=== PATIENT | male | born 1965 | race Caucasian/White ===

== ENCOUNTER 2022-01-02 15:15 | Outpatient (RCR) | payer BC, SELFPAY | END 2022-01-02 15:52 | disposition home or self-care (01) | PROVIDERS: PCP Physician Assistant Medical; Visit Provider Physician Assistant | DX: M54.2 Cervicalgia (principal) | CPT/HCPCS: 97110; 97112; 97140 ==

== ENCOUNTER 2022-06-11 14:46 | Outpatient (CLI) | payer BC, SELFPAY ==
[2022-06-11 21:39] LABS: Albumin* 5.1 g/dL (3.3-5.0); Chloride* 98 mmol/L (96-114); Sodium* 138 mmol/L (135-149)
[2022-06-11 21:40] LABS: Potassium* 4.4 mmol/L (3.6-5.1)
[2022-06-11 21:42] LABS: Alkaline Phosphatase* 92 U/L (40-150); Aspartate Amino Transferase* 45 U/L (12-35); Bilirubin Total* 0.5 mg/dL (0.1-1.5); Blood Urea Nitrogen* 12 mg/dL (7-30); Carbon Dioxide* 29 mmol/L (20-32); Creatinine* 0.8 mg/dL (0.5-1.5); Estimated Glomerular Filt Rate 103 ml/min
[2022-06-11 21:43] LABS: Alanine Aminotransferase* 49 U/L (4-50); Calcium* 9.9 mg/dL (8.4-10.6); Glucose* 170 mg/dL (60-115)
[2022-06-11 22:10] LABS: PSA Screen* 1.69 ng/mL (0.10-4.00)
[2022-06-11 23:21] LABS: Free T4 Free Thyroxine* 0.93 ng/dL (0.70-1.85)
== END 2022-06-11 14:47 | disposition home or self-care (01) ==
PROVIDERS: PCP Physician Assistant Medical; Visit Provider Physician Assistant Medical
DX: Z00.00 Encounter for general adult medical examination without abnormal findings (principal); E03.8 Other specified hypothyroidism; I10 Essential (primary) hypertension; R79.89 Other specified abnormal findings of blood chemistry
CPT/HCPCS: 80053; 84153; 84439; 84443

== ENCOUNTER 2022-09-06 09:55 | Outpatient (CLI) | payer BC, SELFPAY | END 2022-09-06 09:56 | disposition home or self-care (01) | LOC: NFLDREF 09-07 07:34 | PROVIDERS: PCP Physician Assistant Medical; Referring Provider Physician Assistant Medical; Visit Provider Physician Assistant Medical | DX: E03.8 Other specified hypothyroidism (principal); I10 Essential (primary) hypertension; R79.89 Other specified abnormal findings of blood chemistry | CPT/HCPCS: 80048; 80061; 84403; 84443 ==

== ENCOUNTER 2022-11-14 12:22 | Outpatient (CLI) | payer BC, SELFPAY ==
[2022-11-14] MEDS: PERFLUTREN LIPID MICROSPHERES 2 ML VIAL IV (13:10)
[2022-11-14 13:45] VITALS: BP 162/96; PULSE 89
--- NOTE | 2022-11-14 15:28 | W.PM.STED ---
Stress Test Note Date Date of test: 11/14/22 Providers Primary care provider: Esha Rogers Stress test physician: Jorge Banegas Stress Test Note Stress test ordered: Stress Echo Indication for test: Hypertension, shortness of breath, chest pain Stress test medicine: Definity Results discussion: Patient is a very nice gentleman who presents for the above test after discussion the risks benefits and side effects he would like to proceed cardiac stress test medical history form is reviewed. Pretest EKG shows normal sinus rhythm, the blood pressure 183/101. There is no acute ST wave changes, and his rhythm is sinus. Patient is exercised for a total time of 7 minutes 34 seconds achieved a metabolic equivalent of 9.1 Mets with a maximum heart rate of 150, this is under 7% of the target. Maximum blood pressure was 240 on 100. During this test he had some fatigue and some mild shortness of breath, but no chest pain review of the tracings post exercise so no specific ST wave changes suggestive ischemia, there is no dysrhythmias. Impression: Negative electrographic portion of stress echo, subjectively negative. Did have a positive shortness of breath, and conditioning was felt to be moderate Follow up suggested: Await echo images clinical correlation with these will be needed, patient left this testing facility in excellent condition. Follow-up will be with ordering provider.
== END 2022-11-14 12:23 | disposition home or self-care (01) ==
LOC: STRESS 12:23
PROVIDERS: PCP Physician Assistant Medical; Visit Provider Family Medicine
DX: I10 Essential (primary) hypertension (principal); R06.02 Shortness of breath; R07.89 Other chest pain
CPT/HCPCS: 93016; 93325; 93351; Q9957

== ENCOUNTER 2023-01-07 14:49 | Outpatient (CLI) | payer BC, SELFPAY | END 2023-01-07 14:50 | disposition home or self-care (01) | LOC: FRMREF 14:50 | PROVIDERS: PCP Physician Assistant Medical; Visit Provider Physician Assistant Medical | DX: E03.9 Hypothyroidism, unspecified (principal); I10 Essential (primary) hypertension; R79.89 Other specified abnormal findings of blood chemistry | CPT/HCPCS: 84439; 84443 ==

== ENCOUNTER 2023-07-17 14:20 | Outpatient (CLI) | payer BC, SELFPAY | END 2023-07-17 14:21 | disposition home or self-care (01) | LOC: NFLDREF 07-18 07:24 | PROVIDERS: PCP Physician Assistant Medical; Referring Provider Physician Assistant Medical; Visit Provider Physician Assistant Medical | DX: E03.8 Other specified hypothyroidism (principal) | CPT/HCPCS: 84443 ==

== ENCOUNTER 2023-08-07 08:46 | Outpatient (CLI) | payer BC, SELFPAY | END 2023-08-07 08:47 | disposition home or self-care (01) | LOC: NFLDREF 08-11 06:20 | PROVIDERS: PCP Physician Assistant Medical; Referring Provider Physician Assistant Medical; Visit Provider Physician Assistant Medical | DX: R79.89 Other specified abnormal findings of blood chemistry (principal) | CPT/HCPCS: 84403 ==